=== PATIENT | male | born 1995 | race Caucasian/White ===

== ENCOUNTER 2019-06-02 12:02 | Emergency (ER) | payer OTHER, SELFPAY ==
[2019-06-02 12:12] VITALS: BP 135/76; PULSE 81; RESP 20; TEMP 36.9; O2SAT 99
--- NOTE | 2019-06-02 12:51 | ED.URI ---
HPI - URI/Sore Throat General Chief Complaint: Upper Respiratory Infection Stated Complaint: SORE THROAT/EARACHE/COUGH Time Seen by Provider: 06/02/19 12:04 Source: patient Mode of arrival: ambulatory Limitations: no limitations History of Present Illness HPI Narrative: 23-year-old male presents to urgent care with complaints of sore throat, nasal congestion and left ear pain for the past 2 days. Patient's not tried taking any [id number] medications for his symptoms. Patient denies body aches, chills, fever, nausea, vomiting, diarrhea, shortness of breath or wheezing. Patient denies recent travel. MD elicited complaint: sore throat Onset (ago): day(s) (2) Able to tolerate fluids by mouth: Yes Exacerbating factors: nothing Relieving factors: nothing Related Data Home Medications Medication Instructions Recorded Confirmed bupropion HCl [Wellbutrin XL] 300 mg PO QAM 06/02/19 06/02/19 Allergies Allergy/AdvReac Type Severity Reaction Status Date / Time fentanyl AdvReac Mild Nausea Verified 06/02/19 12:18 Review of Systems Review of Systems: All systems reviewed & are unremarkable except as noted in HPI and below Constitutional: Constitutional: Denies chills, Denies fatigue, Denies fever(s) and Denies weakness ENT: Denies dysphagia, Denies vertigo, Denies dizziness, Denies epistaxis, Reports nasal congestion and Reports sore throat Comments: Left ear pain Cardiovascular: Cardiovascular: Denies chest pain and Denies radiating jaw, neck or arm pain Respiratory: Respiratory: Denies cough, Denies dyspnea and Denies wheezing Integumentary/Breasts: Skin/Breast: Denies rash [facility] Social History Social History Smoking status: Current every day smoker Alcohol intake: current Substance use type: marijuana Exam Const: General: healthy appearing, no acute distress and alert Orientation/consciousness: patient oriented x3 HENMT: Head: normal to inspection Ears: external ears normal and TM's normal bilaterally General nose exam: Normal nares present Face and sinus: sinuses nontender Mouth: Yes moist mucous membranes Other: Mild erythema noted to posterior pharynx, tonsils within normal limits. There is no peritonsillar abscess noted. There is no swelling or exudate noted to tonsils. There is mild amount of clear post nasal drainage noted Neck: Neck: normal visual inspection Resp: Effort & Inspection: normal respiratory effort Auscultation: clear to auscultation bilaterally Cardio: Rate: regular rate Rhythm: regular rhythm Heart sounds: no murmurs Neuro: General: patient oriented x3, moves all extremities and no meningeal signs Psych: Appearance: grossly normal Mental Status: mental status grossly normal Affect: normal affect Attitude: cooperative Course Vital Signs Vital signs: Vital Signs Temperature 36.9 C 06/02/19 12:12 Pulse Rate 81 06/02/19 12:12 Respiratory Rate 20 06/02/19 12:12 Blood Pressure 135/76 06/02/19 12:12 Pulse Oximetry 99 06/02/19 12:12 Temperature 36.9 C 06/02/19 12:12 Pulse Rate 81 06/02/19 12:12 Respiratory Rate 20 06/02/19 12:12 Blood Pressure 135/76 06/02/19 12:12 Pulse Oximetry 99 06/02/19 12:12 MDM - URI/Sore Throat MDM Narrative Medical decision making narrative: Negative strep results discussed with patient. Patient agrees to take Claritin as prescribed. Patient agrees to take [id number] Motrin, Tylenol and complete warm salt water gargles as needed. Differential Diagnosis Differential diagnosis: Likely otitis media, sinusitis and bronchitis Lab Data Labs: Strep Screen Presumptive Negative *(Reference Range: Negative)* Critical Care Time Critical Care Time Critical Care Time: No Discharge Plan Discharge Clinical Impression: Upper respiratory infection Qualifiers: URI type: unspecified viral URI Qualified Code(s): J06.9 - Acu
== END 2019-06-02 13:04 | disposition home or self-care (01) ==
PROVIDERS: Emergency Provider Nurse Practitioner Family
DX: J06.9 Acute upper respiratory infection, unspecified (principal); F17.200 Nicotine dependence, unspecified, uncomplicated
CPT/HCPCS: 87081; 87880; 99213; G0463

== ENCOUNTER 2024-03-19 14:45 | Outpatient (CLI) | payer BC, SELFPAY ==
--- NOTE | ~2024-03-19 | US_ITS ---
EXAMINATION:US venous doppler LE LT INDICATION:Left leg swelling TECHNIQUE: Multiple grayscale, color flow and Doppler images of the left lower extremity deep venous systems were obtained and reviewed. COMPARISON:No prior studies for comparison. FINDINGS: The common femoral, superficial femoral and popliteal veins demonstrate normal respiratory variation, augmentation and compressibility. Color flow is also seen within the posterior tibial, pe roneal, greater saphenous and profunda veins. IMPRESSION: 1: No lower extremity deep venous thrombosis. Reviewed, dictated and finalized at location B. [place] [employer]
== END 2024-03-19 14:46 | disposition home or self-care (01) ==
LOC: MICIMG 14:46
PROVIDERS: PCP Family Medicine; Visit Provider Student in an Organized Health Care Education/Training Program
DX: R60.0 Localized edema (principal)
CPT/HCPCS: 93971